=== PATIENT | male | born 1960 | race Caucasian/White ===

== ENCOUNTER 2017-05-03 03:49 | Inpatient (IN) | payer BC ==
[2017-05-02 15:44] LABS: INR 1.05
[2017-05-03] VITALS (12 sets, daily range): BP systolic 101–126; BP diastolic 67–92
[~2017-05-03] VITALS: Ht 185.4 cm; Wt 159.2 kg
[~2017-05-03 03:49] MED LIST: ATOR10TA24 PO; CARV25TA78 PO; CEPH-13 PO; HYDR-385 PO; LISI20TA29 PO
[2017-05-03] MEDS ORDERED: NORMOSOL R SOLN(*) 1000 ML BAG 1,000 ML IV PRN (14:00)
[2017-05-03] MEDS ORDERED: ceFAZolin(*) 2GM/D5W 50ML 50 ML IVPB ONE (14:00)
[2017-05-03] MEDS ORDERED: FAMOTIDINE 20 MG TAB PO ONE (14:00)
[2017-05-03] MEDS ORDERED: MIDAZOLAM 2 MG/2 ML VIAL IVP ONE (14:00)
[2017-05-03] MEDS ORDERED: cloNIDine EPIDUR INJ 100MCG/ML 40 MCG, ROPIVACAINE 0.5% 20 ML VIAL 25 ML, EPINEPHrine H... INJ ONE (14:00)
[2017-05-03] MEDS ORDERED: TRANEXAMIC AC 1000 MG/10ML SDV 1,000 MG in DEXTROSE 5% 50 ML BAG 50 ML IV ONE (14:00)
[2017-05-03] MEDS ORDERED: LIDOCAINE/SOD BICARB 8.4% SYR ID ONE (14:00)
[2017-05-03] MEDS ORDERED: BACITRACIN 50000 UNIT/VIAL 100,000 UNIT in NS 0.9% 3000 ML IRRIGATION BAG 3,000 ML IR ONE (14:00)
[2017-05-03] MEDS ORDERED: LIDOCAINE 2% IV 100 MG/5ML SYR ONE (14:05)
[2017-05-03] MEDS ORDERED: fentaNYL CITR 100 MCG/2 ML AMP ONE (14:05)
[2017-05-03] MEDS ORDERED: PROPOFOL EMUL(*) 10MG/ML 20 ML 40 ML ONE (14:05)
[2017-05-03] MEDS ORDERED: DEXAMETHASONE SOD 4 MG/ML VIAL ONE (14:39)
[2017-05-03] MEDS ORDERED: ONDANSETRON 4 MG/2 ML VIAL ONE (14:42)
--- NOTE | 2017-05-03 16:47 | RADIOLOGY IMAGING REPORT ---
FACILITY: [facility] - [place] PATIENT NAME: Yosvany Perez : 1960 MR: [id number] V: [id number] EXAM DATE: ORDERING PHYSICIAN: GINETTE RAY TECHNOLOGIST: Location: [facility] Patient: Yosvany Perez : 1960 Visit/Account:[id number] Date of Sevice: 05/03/2017 HIP IN OR RIGHT Indication: Total hip replacement Comparison: None available Findings: Alignment appears anatomic status post right total hip arthroplasty. Tip of the femoral stem is not seen. IMPRESSION: 1. Right total hip arthroplasty. Report Dictated By: Teofilo Romero MD at 05/03/2017 4:42 PM Report E-Signed By: Teofilo Romero MD at 05/03/2017 4:43 PM WSN:[id number]
[2017-05-03] MEDS ORDERED: LR 1000 ML BAG 1000 ML IV PRN (17:40)
[2017-05-03] MEDS ORDERED: MAGNESIUM CITRATE 300 ML BTL PO PRN (17:40)
[2017-05-03] MEDS ORDERED: diphenhydrAMINE 50 MG/ML VIAL IVP PRN (17:40)
[2017-05-03] MEDS ORDERED: ONDANSETRON 4 MG/2 ML VIAL IVP PRN (17:40)
[2017-05-03] MEDS ORDERED: FLUSH 10 ML SYR IVP PRN (17:40)
[2017-05-03] MEDS ORDERED: PROMETHAZINE 25 MG/ML 1 ML AMP IVP PRN (17:40)
[2017-05-03] MEDS ORDERED: diphenhydrAMINE 25 MG CAP PO PRN (17:40)
[2017-05-03] MEDS ORDERED: ZOLPIDEM TARTRATE 5 MG TAB PO PRN (17:40)
[2017-05-03] MEDS ORDERED: MAGNESIUM HYDROXIDE* 30ML UDCP PO PRN (17:40)
[2017-05-03] MEDS ORDERED: BISACODYL 10 MG SUPP PR PRN (17:40)
[2017-05-03] MEDS ORDERED: PROMETHAZINE 25 MG/ML 1 ML AMP ONE (17:42)
[2017-05-03] MEDS ORDERED: MEPERIDINE 50 MG/ML SYR ONE (18:08)
[2017-05-03] MEDS ORDERED: NORMOSOL R SOLN(*) 1000 ML BAG 0 ML IV ONE (18:17)
--- NOTE | 2017-05-03 20:30 | RADIOLOGY IMAGING REPORT ---
FACILITY: [facility] PATIENT NAME: Yosvany Perez : 1960 MR: [id number] V: [id number] EXAM DATE: ORDERING PHYSICIAN: GINETTE RAY TECHNOLOGIST: Location: [facility] Patient: Yosvany Perez : 1960 Visit/Account:[id number] Date of Sevice: 05/03/2017 EXAMINATION: AP pelvis. HISTORY: Postop right RUBIO COMPARISON: None. FINDINGS: Surgical changes of right RUBIO. The femoral and acetabular components demonstrate normal alignment. Remainder the partially visualized bony pelvis appears radiographically intact. Normal alignment at t he left hip. IMPRESSION: New surgical changes of right RUBIO. Report Dictated By: Don Galan MD at 05/03/2017 8:26 PM Report E-Signed By: Don Galan MD at 05/03/2017 8:27 PM WSN:[id number]
[2017-05-03] MEDS ORDERED: ASPIRIN 325 MG TAB PO SCH (21:00)
[2017-05-03] MEDS: HYDROmorphone HCL 2 MG/ML SDV IVP PRN (22:15)
[2017-05-03] MEDS: ceFAZolin(*) 2GM/D5W 50ML 50 ML IVPB SCH (22:16)
--- NOTE | 2017-05-03 22:47 | Hospitalist Progress Note ---
Subjective Progress Notes Subjective No cp/sob. There is no anesthesia note and we are unable to get it, so it is unknown how much fluid he received or his EBL. Physical Exam Vital Signs Date Time Temp Pulse Resp B/P (MAP) Pulse Ox O2 Delivery O2 Flow Rate FiO2 05/03/17 18:45 98.0 56 12 126/92 (103) 97 Nasal Cannula 4.0 Intake and Output 05/04/17 07:00 Intake Total 1975 ml Output Total 250 ml Balance 1725 ml Intake IV Total 1975 ml Output Estimated Blood Loss 250 ml General Appearance: Alert, Awake, No Acute Distress Cardiovascular: Regular Rate and Rhythm Respiratory: Clear to Auscultation Extremities: No Edema Assessment and Plan Problems: (1) Status post hip replacement Status: Acute Assessment & Plan: There is no anesthesia note and we are unable to get it, so it is unknown how much fluid he received or his EBL. No h/o DVT or PE. Will use ASA for blood clot prevention for 30 days after surgery. (2) Systolic CHF Status: Chronic Assessment & Plan: Viral cardiomyopathy in 2013. EF now 43% pre-op. Will follow for fluid overload. Currently, saline locked. Continue Coreg and lisinopril with parameters. (3) Hyperlipemia Status: Chronic Assessment & Plan: Continue Atorvastatin. (4) KAMALJIT (obstructive sleep apnea) Status: Chronic Assessment & Plan: Will use our CPAP if he is demonstrating apneic episodes. Currently, doing well on NC. JAMIR CALIXTO MD May 03, 2017 22:47
[2017-05-04] VITALS: BP 99/63
[2017-05-04 01:00] VITALS: BP 107/65
[2017-05-04] MEDS: ceFAZolin(*) 2GM/D5W 50ML 50 ML IVPB SCH ×2 (05:53→14:19)
[2017-05-04] MEDS ORDERED: OXYC-865 PO (06:31)
[2017-05-04] MEDS ORDERED: ASPI-757 PO (06:49)
--- NOTE | 2017-05-04 06:51 | Hospitalist Progress Note ---
Subjective Progress Notes Subjective No cp/sob. No concerns from the patient or staff. Physical Exam Vital Signs Date Time Temp Pulse Resp B/P (MAP) Pulse Ox O2 Delivery O2 Flow Rate FiO2 05/04/17 01:00 69 107/65 (79) 96 CPAP 2.0 05/03/17 18:45 98.0 12 General Appearance: Alert, Awake, No Acute Distress Cardiovascular: Regular Rate and Rhythm Respiratory: Clear to Auscultation Result Diagram: 05/04/1751705/04/17517 Assessment and Plan Problems: (1) Status post hip replacement Status: Acute Assessment & Plan: There is no anesthesia note, but reportedly he had about 250cc of EBL and 1800cc of crystalloid given intra-op. No h/o DVT or PE. Will use ASA for blood clot prevention for 30 days after surgery. (2) Hypoxia Status: Acute Assessment & Plan: Lungs are clear. There is low clinical suspicion for PE or pneumonia. It is secondary to narcotics, recent surgery and [place]'s high elevation. If he goes home on O2, he will need to follow up with his PCP in a couple of days to check a room air saturation. He is to bring a copy of today' s Hospitalist note with him. (3) Systolic CHF Status: Chronic Assessment & Plan: Viral cardiomyopathy in 2013. EF now 43% pre-op. No evidence for fluid overload. Currently, saline locked. Continue Coreg and restart lisinopril in a couple of days. (4) Hyperlipemia Status: Chronic Assessment & Plan: Continue Atorvastatin. (5) KAMALJIT (obstructive sleep apnea) Status: Chronic Assessment & Plan: Continue CPAP. Exam Sepsis Risk: No Definite Risk JAMIR CALIXTO MD May 04, 2017 06:50
[2017-05-04 07:00] VITALS: BP 117/92
[2017-05-04] MEDS ORDERED: CARVEDILOL 25 MG TABLET PO SCH (09:00)
[2017-05-04] MEDS: HYDROmorphone HCL 2 MG/ML SDV IVP PRN (14:11)
--- NOTE | 2017-05-04 16:11 | OPERATIVE REPORT 1 ---
EVENT DATE: May 03, 2017 SURGEON: Gregg Resendiz MD ANESTHESIOLOGIST: Igor Mosquera MD ANESTHESIA: General plus spinal. ADMINISTRATION PROFESSIONAL: Ger Yun PA-C PREOPERATIVE DIAGNOSIS Right hip osteoarthritis. POSTOPERATIVE DIAGNOSIS Right hip osteoarthritis. PROCEDURE PERFORMED Right total hip arthroplasty. FINDINGS The patient had a significant amount of arthritic changes associated with the hip and was amenable for total hip arthroplasty. ESTIMATED BLOOD LOSS 250 mL DRAINS None. COMPLICATIONS None. TOURNIQUET TIME Not applicable. IMPLANTS Bud 58 mm Trabecular Metal cup with a neutral liner accommodating a 40 head and a 12.5 standard Martinez taper stem with a 40+ 3.5 head, one dome hole plug, and three screw hole plugs in the acetabulum. SPECIMENS None. INDICATIONS AND HISTORY This patient is a 56-year-old male who presented to my clinic for evaluation of right hip pain and irritation going on for some time. He has continued to have pain and irritation despite conservative management and was known to have significant osteoarthritic changes associated with his hip, and so therefore we talked about the implications of this as well as the treatment options. He wanted to go ahead with the total hip arthroplasty today, May 03, 2017. The risks and benefits were discussed with the patient, and informed consent was obtained at the last clinic visit. We talked about how he may have leg length discrepancy, his risk of dislocation, his risk also for revision given the fact that he is in his 50s and doing a total hip arthroplasty and also the fact of a possible nerve injury secondary to the fact of his large girth and difficulty doing the case with the large mass. DESCRIPTION OF PROCEDURE The patient was brought in the operating room. He and the procedure were both verified. He was placed supine on the operating table and induced and intubated by Anesthesia. After being given a spinal, he was then turned in the lateral decubitus position, and then the right leg was then prepped and draped in the usual fashion. A timeout was observed verifying the correct patient and procedure. The standard incision was then made over the posterior aspect of the hip along the longitudinal aspect of the femur. This was taken through the skin and subcutaneous tissue, and then I was able to go down all the way to the gluteal musculature and just over the IT band. Once I was able to get under the hip bursa, I was then able to split the IT band down the side in order to expose the short external rotators. Once I exposed the short external rotators, I was able to cut the piriformis and tag it for later repair and cut some of the short external rotators just a little bit further down. I was then able to dislocate the hip after cutting the capsule in a T-shape fashion and then pulling the capsular sides back. Once the hip was dislocated, I was then able to make the standard hip cut along the base of the femur. I was then able to expose the acetabulum by placing anterior and inferior acetabular retractors and then a small blunt Hohmann superiorly. I then removed the labrum without much difficulty and also removed some of the ligaments and tears that were still leftover in order to get to the true pelvic floor. Once on the true pelvic floor, I was then able to ream starting with the 47 mm reamer all the way up to a 57 mm reamer in sequential reaming in order to accommodate a 58 mm cup and leave an adequate of bone amount on each side since he likely will need a revision at some point. Once I was able to get a standard fit out of that, I then put in a 58 mm Trabecular Metal acetabular shell from Bud into the wound, making sure it was in good position for both anteversion and slope and then was able to put this in place, secondary impaction, and then got it down, and I could see through the screw holes that were all pointed down. I then put a dome hole plug and three screw hole plugs without any difficulty and then put in the standard neutral liner for the 58 mm cup. I then turned attention to the femur where I was able to expose the proximal aspect of the femur. I then was able to take a box cutting osteotome, and this was followed by placement of a canal finding linette and then a lateralizing reamer. I then started with broaching from a [address] up to a 12.5 standard broach which fit well. There were no signs of problems, and so therefore, this was what was trialed. We trialed initially with a +0, 40 head. This seemed like it had too much play to the system, so therefore we put in a +3.5, and this had a much better play to the system and also had better stability associated with the leg flexed and the leg internally rotated. We then took an intraoperative film verifying that it had good position and that there was adequate leg length and no signs of discrepancy. Of course, because of his girth, this was a little bit difficult to tell, but it looked adequate on these x-rays. We then removed all instrumentation, removed the broach, and irrigated with copious amounts of saline. I then put in the final stem without much difficulty. I was able to put it in all the way to the laser line on the stem itself. I then put on the 40 mm ceramic head that was +3 and without any difficulty relocated the hip. I then put it through range of motion once again. There were no signs of problems that were associated with this, and this is what was chosen. I then repaired the capsule on the posterior aspect with a heavy Ethibond suture. This was the followed by Ethibond repair of the piriformis to the posterior aspect of the femur through drill holes and then irrigation again with copious amounts of saline and then placement of the intraoperative cocktail for pain control. I then was able to irrigate again and then close the IT band and gluteal musculature with an 0 Stratafix. This was then followed by 2-0 Vicryl in the fat layer and then followed by a subcuticular 2-0 Stratafix and then followed by a 4-0 Monocryl in a subcuticular stitch across the skin. The wound was then dressed with Steri-Strips, gauze, 4 x 4's, and a soft dressing. The patient was put in a hip wrap, and the patient was then awakened, extubated, and transferred to PACU in stable condition. JUAN CARLOS
[2017-05-04] MEDS ORDERED: LISINOPRIL 20 MG TAB PO SCH (21:00)
[2017-05-04] MEDS ORDERED: ATORVASTATIN 10 MG TAB PO SCH (21:00)
== END 2017-05-04 15:20 | disposition home or self-care (01) | DRG 470 ==
LOC: OR 03:49 → MED 18:45
PROVIDERS: ADMIT Orthopaedic Surgery; ATTEND Orthopaedic Surgery
PROC: 5A09357 Assistance with Respiratory Ventilation, Less than 24 Consecutive Hours, Continuous Positive Airway Pressure (ICD-10-PCS; 2017-05-03)
PROC: 0SR902Z Replacement of Right Hip Joint with Metal on Polyethylene Synthetic Substitute, Open Approach (ICD-10-PCS; principal; 2017-05-03 14:13)
DX: M16.11 Unilateral primary osteoarthritis, right hip (principal); Z68.42 Body mass index [BMI] 45.0-49.9, adult; I50.22 Chronic systolic (congestive) heart failure; E66.01 Morbid (severe) obesity due to excess calories; I11.0 Hypertensive heart disease with heart failure; G47.33 Obstructive sleep apnea (adult) (pediatric); K21.9 Gastro-esophageal reflux disease without esophagitis; I25.10 Atherosclerotic heart disease of native coronary artery without angina pectoris; E78.5 Hyperlipidemia, unspecified; R09.02 Hypoxemia; T70.29XA Other effects of high altitude, initial encounter; T40.605A Adverse effect of unspecified narcotics, initial encounter; Y92.230 Patient room in hospital as the place of occurrence of the external cause; Y83.8 Other surgical procedures as the cause of abnormal reaction of the patient, or of later complication, without mention of misadventure at the time of the procedure; Y79.3 Surgical instruments, materials and orthopedic devices (including sutures) associated with adverse incidents; Z88.1 Allergy status to other antibiotic agents; Z99.81 Dependence on supplemental oxygen
CPT/HCPCS: 36415; 72170; 82310; 82374; 82435; 82565; 82947; 84132; 84295; 84520; 85014; 85018; 85610; 86850; 86900; 86901; 97161; 97165; C1713; C1776; J0171; J0690; J0735; J1100; J1170; J1885; J2001; J2175; J2250; J2405; J2550; J2704; J2795; J3010; J7050; J7060

== ENCOUNTER 2017-09-04 00:11 | Inpatient (IN) | payer BC ==
[2017-09-03 14:42] LABS: INR 1.06
[2017-09-04] VITALS (21 sets, daily range): BP systolic 110–142; BP diastolic 67–105
[~2017-09-04] VITALS: Ht 184.2 cm; Wt 161.0 kg
[~2017-09-04 00:11] MED LIST changes: +ASPI-1471 PO; +ASPI-757 PO; +OXYC-865 PO
[2017-09-04] MEDS: NORMOSOL R SOLN(*) 1000 ML BAG 1,000 ML IV PRN ×2 (05:36→11:16)
[2017-09-04] MEDS ORDERED: LIDOCAINE/SOD BICARB 8.4% SYR ID ONE (06:00)
[2017-09-04] MEDS ORDERED: TRANEXAMIC AC 1000 MG/10ML SDV 1,000 MG in DEXTROSE 5% 50 ML BAG 50 ML IV ONE (06:00)
[2017-09-04] MEDS ORDERED: ceFAZolin(*) 2GM/D5W 50ML 50 ML IVPB ONE (06:00)
[2017-09-04] MEDS ORDERED: MIDAZOLAM 2 MG/2 ML VIAL IVP PRN (06:00)
[2017-09-04] MEDS ORDERED: CELECOXIB 200 MG CAP PO ONE (06:00)
[2017-09-04] MEDS ORDERED: BACITRACIN 50000 UNIT/VIAL 100,000 UNIT in NS 0.9% 3000 ML IRRIGATION BAG 3,000 ML IR ONE (06:00)
[2017-09-04] MEDS ORDERED: ACETAMINOPHEN 500 MG TAB PO ONE (06:00)
[2017-09-04] MEDS ORDERED: cloNIDine EPIDUR INJ 100MCG/ML 40 MCG, ROPIVACAINE 0.5% 20 ML VIAL 25 ML, EPINEPHrine H... EPI ONE (06:00)
[2017-09-04] MEDS ORDERED: FAMOTIDINE 20 MG TAB PO ONE (06:00)
[2017-09-04] MEDS ORDERED: PREGABALIN 50 MG CAP PO ONE (06:00)
[2017-09-04] MEDS ORDERED: fentaNYL CITR 100 MCG/2 ML AMP ONE ×2 (08:14→09:56)
[2017-09-04] MEDS ORDERED: PROPOFOL EMUL(*) 10MG/ML 20 ML 40 ML ONE (09:17)
[2017-09-04] MEDS ORDERED: ONDANSETRON 4 MG/2 ML VIAL ONE ×2 (09:17→10:19)
[2017-09-04] MEDS ORDERED: DEXAMETHASONE SOD PHOS 10MG/ML ONE (09:17)
[2017-09-04] MEDS ORDERED: ePHEDrine 25 MG/5 ML DISP.SYR IVP ONE (09:17)
--- NOTE | 2017-09-04 10:04 | RADIOLOGY IMAGING REPORT ---
FACILITY: [facility] PATIENT NAME: Yosvany Perez : 1960 MR: [id number] V: [id number] EXAM DATE: ORDERING PHYSICIAN: GINETTE RAY TECHNOLOGIST: Location: [facility] [place] Patient: Yosvany Perez : 1960 Visit/Account:[id number] Date of Sevice: 09/04/2017 Technique: KNEE LIMITED LEFT HISTORY: Status post left knee arthroplasty Comparison studies: None FINDINGS: There is no acute fracture. The alignment of the left knee is maintained. Present is a le ft knee arthroplasty in the background setting of ACL repair. Expected adjacent postoperative change s are noted. IMPRESSION: 1. Left knee arthroplasty without evidence of acute hardware complication. Report Dictated By: Armani Beckett DO at 09/04/2017 9:57 AM Report E-Signed By: Armani Beckett DO at 09/04/2017 9:59 AM WSN:[id number]
[2017-09-04] MEDS ORDERED: ATOR40TA24 PO (11:21)
[2017-09-04] MEDS ORDERED: MULT-1335 PO (11:28)
[2017-09-04] MEDS ORDERED: ACET500T68 PO (11:29)
[2017-09-04] MEDS ORDERED: IBUP-56 PO (11:29)
[2017-09-04] MEDS ORDERED: LR 1000 ML BAG 1000 ML IV PRN (11:35)
[2017-09-04] MEDS ORDERED: MAGNESIUM CITRATE 300 ML BTL PO PRN (11:35)
[2017-09-04] MEDS ORDERED: diphenhydrAMINE 50 MG/ML VIAL IVP PRN (11:35)
[2017-09-04] MEDS ORDERED: MAGNESIUM HYDROXIDE* 30ML UDCP PO PRN (11:35)
[2017-09-04] MEDS ORDERED: FLUSH 10 ML SYR IVP PRN (11:35)
[2017-09-04] MEDS ORDERED: HYDROmorphone HCL 2 MG/ML SDV IVP PRN (11:35)
[2017-09-04] MEDS ORDERED: PROMETHAZINE 25 MG/ML 1 ML AMP IVP PRN (11:35)
[2017-09-04] MEDS ORDERED: BISACODYL 10 MG SUPP PR PRN (11:35)
[2017-09-04] MEDS ORDERED: diphenhydrAMINE 25 MG CAP PO PRN (11:35)
[2017-09-04] MEDS ORDERED: ZOLPIDEM TARTRATE 5 MG TAB PO PRN (11:35)
[2017-09-04] MEDS ORDERED: ONDANSETRON 4 MG/2 ML VIAL IVP PRN (11:35)
--- NOTE | 2017-09-04 11:48 | Hospitalist Consultation ---
History of Present Illness Requesting Physician Dr. Resendiz Reason for Consult Medication Management Chief Complaint s/p left knee replacement History of Present Illness He was admitted s/p left knee replacement. It was reported the surgery went well and without complication. History Problems: (1) Hypertension Status: Chronic (2) Hyperlipemia Status: Chronic (3) KAAMLJIT (obstructive sleep apnea) Status: Chronic Home Meds Reported Medications Acetaminophen (TYLENOL EXTRA STRENGTH) 500 Mg Tablet, 1000 MG PO Q6H Y for pain , TAB 09/04/17 Ibuprofen (IBUPROFEN) 200 Mg Tablet, 2 TAB PO Q6H Y for pain, TAB 09/04/17 Multivitamin With Minerals (MULTIPLE VITAMIN) 1 Each Tablet, 1 EACH PO DAILY, TAB 09/04/17 Atorvastatin Calcium (LIPITOR) 40 Mg Tablet, 1 TAB PO QHS, TAB 09/04/17 Aspirin (ASPIR 81) 81 Mg Tablet.dr, 81 MG PO QDAY, TAB 08/27/17 Carvedilol (CARVEDILOL) 25 Mg Tablet, 25 MG PO BID, #10 TAB 04/24/17 Lisinopril (LISINOPRIL) 20 Mg Tablet, 20 MG PO QDAY, TAB 04/24/17 Discontinued Reported Medications Atorvastatin Calcium (LIPITOR) 10 Mg Tablet, 40 MG PO QDAY, TAB 04/24/17 Allergies: Coded Allergies: clindamycin (Verified Allergy, Mild, RED RASH, 08/27/17) Hx Smoking: No Smoking Status: Never Smoker Exposure to Second Hand Smoke?: Yes (CHILDHOOD) Caffeine Intake: Tea Caffeine/Cups Per Day: 3-4 Hx Alcohol Use: No Hx Substance Use Disorder: No Social Drug Use: Never Review of Systems All Systems Reviewed/Normal: Yes, Except as Noted Exam Vital Signs Vital Signs Date Time Temp Pulse Resp B/P (MAP) Pulse Ox O2 Delivery O2 Flow Rate FiO2 09/04/17 10:57 97.6 46 12 123/105 (111) 96 Nasal Cannula 2.0 General Appearance: Alert, Awake, No Acute Distress, Afebrile Neuro: No Gross deficits Cardiovascular: Regular Rate and Rhythm, Other (bradycardia noted) Respiratory: No Respiratory Distress, Clear to Auscultation GI: Abd Soft and Non-Tender Psych: Alert & Oriented X3, Appropriate Mood & Affect Assessment and Plan Problems: (1) Status post left knee replacement Status: Acute Assessment & Plan: Followed by Dr. Resendiz. He will be placed on Aspirin 325mg daily for 30 days for DVT prophylaxis. He does not have history of DVT or PE. He did get a GI Bleed from Aspirin after his hip surgery. He will be placed on PPI therapy to reduce risk of GI Bleed. (2) Hypertension Status: Chronic Assessment & Plan: He is on chronic treatment with Carvedilol and Lisinopril. We have started these medications with hold parameters. (3) Hyperlipemia Status: Chronic Assessment & Plan: He is on chronic treatment with Atorvastatin. (4) KAMALJIT (obstructive sleep apnea) Status: Chronic Assessment & Plan: He is on chronic treatment with CPAP. He brought his own CPAP to use Capsule.fm. Venous Thromboembolism Antithrombotics Is Pt On Any Antithrombotics?: No Prophylaxis Tx Contraindicated Pharmacological Contraindicati: Surgical Contraindication THERESA QUINTANA September 04, 2017 11:48
--- NOTE | 2017-09-04 13:10 | EKG ---
FACILITY: [facility] [place] PATIENT NAME: KATHIA BERMUDEZ : [id number] MR: [id number] V: [id number] EXAM DATE: ORDERING PHYSICIAN: JAMIR CALIXTO TECHNOLOGIST: CORA Casillas Reason : CONG Blood Pressure : / mmHG Vent. Rate : 056 BPM Atrial Rate : 056 BPM P-R Int : 220 ms QRS Dur : 102 ms QT Int : 420 ms P-R-T Axes : 038 -53 093 degrees QTc Int : 405 ms Sinus bradycardia with marked sinus arrhythmia with 1st degree AV block with occasional premature lexy tricular complexes Left axis deviation Inferior infarct , age undetermined Anterolateral infarct , age undetermined Abnormal ECG No previous ECGs available Confirmed by JAMIR CALIXTO ([id number]) on 09/04/2017 4:13:01 PM Referred By: DURGA Confirmed By:JAMIR CALIXTO
[2017-09-04] MEDS: ceFAZolin(*) 2GM/D5W 50ML 50 ML IVPB SCH ×2 (14:11→21:40)
--- NOTE | 2017-09-04 19:19 | OPERATIVE REPORT 1 ---
EVENT DATE: September 04, 2017 SURGEON: Gregg Resendiz MD ANESTHESIOLOGIST: Ricky Maldonado MD ANESTHESIA: General plus spinal. MACHINE STUFFER: Ger Yun PA-C PREOPERATIVE DIAGNOSIS Left knee osteoarthritis. POSTOPERATIVE DIAGNOSIS Left knee osteoarthritis. PROCEDURE PERFORMED Left total knee arthroplasty. FINDINGS The patient had a significant amount of arthritic changes associated with his knee, but was amenable for a total knee arthroplasty. He did have a flexion contracture. ESTIMATED BLOOD LOSS About 300 mL. DRAINS None. COMPLICATIONS None. TOURNIQUET TIME About 18 minutes, which was up just during the cementation. IMPLANTS USED DePuy Attune size 9 posterior stabilized femur with a size 8 tibia Attune, posterior stabilized, with a rotating platform, a 6 x 9 rotating platform poly, and a 38 mm anatomical patella. SPECIMENS None. INDICATIONS AND HISTORY This patient is a 56-year-old male who presented to my clinic for evaluation of left knee pain and irritation associated with arthritic changes. We had replaced his hip previously, and so he wanted to go ahead with a total knee arthroplasty since he had a significant amount of arthritic changes and end- stage arthritis throughout and a flexion contracture. We talked about the flexion contracture and how he may not get full extension after the procedure. We will do everything we can to get him as much motion as possible. After discussion of the risks and benefits, informed consent was obtained at the last clinic visit, and we got him set up to do that today, September 04, 2017. DESCRIPTION OF PROCEDURE As the patient was brought in the operating room, he and the procedure were both verified. He was given a spinal by Anesthesia and then induced and intubated. The left leg was then prepped and draped in the usual fashion, and then a timeout was observed verifying the correct patient and procedure. The standard incision was made over the anterior aspect of the knee and taken through the skin and subcutaneous tissue. I was then able to cauterize the bleeders on the way through, then identify the synovium over the anterior aspect of the femur, and then make a median parapatellar approach. Once I made a medial parapatellar approach, I was then able to remove that superior synovium and then also a lot of the irritation and fat pad over the anterior aspect of the knee. I then removed some osteophytes off the distal femur as well as off the proximal tibia in order to gain access to the knee and what was left of the anterior, medial, and lateral menisci. I then was able to melissa the patella and then release the medial side a little bit. Once I was able to do this, I was then able to flex the knee into a high flexion movement. I then removed the ACL and the PCL with the old graft that was in this area. We did not find the screws, and so therefore did not remove them on either side. I then was able to drill down the intramedullary canal of the femur. We took 10 off of the distal femur secondary to the fact of the flexion contracture and a standard 5 for the rotation. We then sized the femur to a 9, put in the four-in-one cutting block for the 9, and then cut the four cuts without any major difficulty. I then put in the notch cutting block, which I was able to cut without any major issues. I then removed a lot of osteophytes off the posterior femur. I then turned attention to the tibia. Once on the tibia, I then removed the remainder of the posterior menisci in this area and then also did a little bit of a release to the medial side in the posteromedial corner. This was then followed by intramedullary drilling of the central portion of the tibia. This was then followed by the intramedullary guide from the [employer] system where we measured to take about 2 mm off the medial side as this was very low and quite a bit different from the lateral side. I then cut without any major difficulty and then had a nice cut that we measured to an 8 on the tibia and then made sure that with the alignment linette there were no signs of varus or valgus instability associated with this. This was then followed by prepping of the tibia by putting the punch into the tibia and then drilling the central portion and then placing the standard punch for the trials. Once I trialed it, the 5 trial was felt to be just a touch too loose, and so therefore we then trialed the 6. The 6 had a little bit better flexion gap. Both of them had a little bit of a contracture for extension, not by components, but by soft tissue on the posterior aspect. We released some more of the posterior capsule using a Rosales, and we still had a little bit of tightness on the backside of this area. I then was able to irrigate with copious amounts of saline, then everted the patella, cut 9.5 mm off the patella, and then sized it for a 38 anatomic patella. I then was able to put all trials in place and then flex and extend the knee, and there were no signs of problems or issues with the patella maltracking. We then put up the Esmarch and then removed all the components. We irrigated with copious amounts of saline throughout the knee and then cemented the components in place without any major difficulty and removed the posterior osteophytes off the rest of the posterior femur and the tibia when everything was cut. I then allowed the cement to harden and then was able to flex and extend the knee without any difficulty. I then was able to close the medial parapatellar approach. This was then followed by 2-0 Vicryl in the subcutaneous tissue and a 2-0 subcutaneous running Stratafix, and then I did a 4-0 Monocryl in the skin and then dressed it with a bio-occlusive dressing. The patient was then awakened, extubated, and transferred to PACU in stable condition. The tourniquet was let down after 18 minutes after the cement was hardened. JUAN CARLOS
[2017-09-04] MEDS: CARVEDILOL 25 MG TABLET PO SCH (20:49)
[2017-09-04] MEDS ORDERED: CARVEDILOL 25 MG TABLET PO SCH (21:00)
[2017-09-04] MEDS ORDERED: ATORVASTATIN 40 MG TAB PO SCH (21:00)
[2017-09-04] MEDS ORDERED: ASPIRIN 325 MG TAB PO SCH (21:00)
[2017-09-05 03:25] VITALS: BP 133/69
[2017-09-05] MEDS: ceFAZolin(*) 2GM/D5W 50ML 50 ML IVPB SCH (05:42)
[2017-09-05 08:10] VITALS: BP 127/72
[2017-09-05] MEDS ORDERED: OXYC-865 PO (08:49)
[2017-09-05] MEDS ORDERED: LISINOPRIL 20 MG TAB PO SCH ×2 (09:00)
[2017-09-05] MEDS ORDERED: PANTOPRAZOLE SOD 40 MG TABEC PO SCH (09:00)
[2017-09-05] MEDS ORDERED: ASPIRIN 325 MG TAB PO SCH (09:00)
[2017-09-05] MEDS ORDERED: PANT40TA65 PO (09:06)
[2017-09-05] MEDS ORDERED: ASPI-757 PO (09:13)
--- NOTE | 2017-09-05 09:15 | Hospitalist Progress Note ---
Subjective Progress Notes Subjective He has no complaints this morning. He states he is ready to go home. Patient Complains of: Cardiovascular: No: Chest Pain Respiratory: No: Shortness of Breath Physical Exam Vital Signs Date Time Temp Pulse Resp B/P (MAP) Pulse Ox O2 Delivery O2 Flow Rate FiO2 09/05/17 03:25 60 16 133/69 (90) 94 CPAP 6.0 09/04/17 19:54 98.1 Intake and Output 09/06/17 01:00 Intake Total 290 ml Balance 290 ml Intake Oral 240 ml IV Total 50 ml # Voids 1 General Appearance: Alert, Awake, No Acute Distress, Afebrile Neuro: No Gross deficits Cardiovascular: Regular Rate and Rhythm Respiratory: No Respiratory Distress, Clear to Auscultation GI: Soft and Non-Tender Psych: Alert & Oriented X3, Appropriate Mood & Affect Result Diagram: 09/05/17 0840 Assessment and Plan Problems: (1) Status post left knee replacement Status: Acute Assessment & Plan: Followed by Dr. Resendiz. He will be placed on Aspirin 325mg daily for 30 days for DVT prophylaxis. He does not have history of DVT or PE. He did get a GI Bleed from Aspirin after his hip surgery. He will be placed on PPI therapy to reduce risk of GI Bleed. (2) Hypertension Status: Chronic Assessment & Plan: He is on chronic treatment with Carvedilol and Lisinopril. (3) Hyperlipemia Status: Chronic Assessment & Plan: He is on chronic treatment with Atorvastatin. (4) KAMALJIT (obstructive sleep apnea) Status: Chronic Assessment & Plan: He is on chronic treatment with CPAP. Exam Sepsis Risk: No Definite Risk THERESA QUINTANA RESIDENTIAL LEASING AGENT September 05, 2017 09:15
[2017-09-05] MEDS: CARVEDILOL 25 MG TABLET PO SCH (09:25)
== END 2017-09-05 10:35 | disposition home or self-care (01) | DRG 470 ==
LOC: OR 00:11 → MED 10:55 → INTOOBSV 10:55 → UNDOADMOB 10:55 → OBSVTOIN 10:55 → UNDODISOB 09-05 10:35
PROVIDERS: ADMIT Orthopaedic Surgery; ATTEND Orthopaedic Surgery
PROC: 5A09357 Assistance with Respiratory Ventilation, Less than 24 Consecutive Hours, Continuous Positive Airway Pressure (ICD-10-PCS; 2017-09-04)
PROC: 0SRD0J9 Replacement of Left Knee Joint with Synthetic Substitute, Cemented, Open Approach (ICD-10-PCS; principal; 2017-09-04 06:59)
DX: M17.12 Unilateral primary osteoarthritis, left knee (principal); Z68.42 Body mass index [BMI] 45.0-49.9, adult; I42.9 Cardiomyopathy, unspecified; E66.01 Morbid (severe) obesity due to excess calories; I10 Essential (primary) hypertension; G47.33 Obstructive sleep apnea (adult) (pediatric); M1A.9XX0 Chronic gout, unspecified, without tophus (tophi); E78.5 Hyperlipidemia, unspecified; M24.562 Contracture, left knee; Z96.641 Presence of right artificial hip joint; Z99.81 Dependence on supplemental oxygen; Z88.1 Allergy status to other antibiotic agents
CPT/HCPCS: 36415; 85014; 85018; 85610; 86850; 86900; 86901; 93005; 94660; 97162; C1713; C1776; J0171; J0690; J0735; J1100; J1170; J1885; J2250; J2405; J2704; J2795; J3010; J7050; J7060; Q0163